=== PATIENT | female | born 1955 | race Caucasian/White ===

== ENCOUNTER 2022-03-20 13:21 | Inpatient (IN) | payer MEDICARE, OTHER ==
[~2022-03-20] VITALS: Ht 160 cm; Wt 74.8 kg
--- NOTE | 2022-03-20 13:25 | NUR ---
DOM 40 FROM ADULT DAY [facility]ARE C/O HEADACHE, PALPITATION AND CHEST PRESSURE FOR 1 MONTH. PLACED PATIENT COMFORTABLY IN BED. VITALS CHECKED. PATIENT CLAIMED THAT SHE HAS HEADACHE OF 6/10 IN PAIN SCALE IT STARTED 8AM TODAY.
[2022-03-20] MEDS ORDERED: OMEP20CA15 PO (13:26)
[2022-03-20] MEDS ORDERED: METF-440 PO (13:26)
[2022-03-20] MEDS ORDERED: ATOR10TA PO (13:26)
[2022-03-20] MEDS ORDERED: INSU100V3 SQ ×2 (13:26)
[2022-03-20] MEDS ORDERED: LEVO88TA5 PO (13:26)
[2022-03-20] MEDS ORDERED: NPH,100V SQ ×2 (13:26)
[2022-03-20] MEDS ORDERED: BENA40TA8 PO (13:26)
[2022-03-20] MEDS ORDERED: SERT50TA PO (13:26)
[2022-03-20] MEDS ORDERED: GLIM4TAB37 PO (13:26)
--- NOTE | 2022-03-20 13:30 | NUR ---
SEEN BY DR ROSS AT BEDSIDE.
[2022-03-20] MEDS ORDERED: LORAZEPAM 0.5 MG TABLET ONE (13:43)
--- NOTE | 2022-03-20 13:45 | NUR ---
EKG DONE AT BEDSIDE.
--- NOTE | 2022-03-20 13:51 | NUR ---
THERMOMETER PRODUCTION WORKER AT BEDSIDE.
--- NOTE | 2022-03-20 13:59 | NUR ---
CXR DONE AT BEDSIDE.
[2022-03-20] MEDS ORDERED: LORAZEPAM 0.5 MG TABLET PO ONE (14:00)
[2022-03-20 14:14] LABS: CALCIUM, SERUM 9.4 mg/dL (8.5-10.1); CARBON DIOXIDE 25 mmol/L (21-32); CHLORIDE 104 mmol/L (98-107); CREATININE 0.6 mg/dL (0.6-1.3); GLUCOSE 157 mg/dL (74-106); POTASSIUM 3.8 mmol/L (3.5-5.1); SODIUM SERUM 140 mmol/L (136-145); UREA NITROGEN, BLOOD 16 mg/dL (7-18)
[2022-03-20 14:18] LABS: BASOPHILS % (AUTO) 0.6 % (0.0-2.0); EOSINOPHILS % (AUTO) 1.4 % (0.0-6.0); HEMATOCRIT 41 % (33-45); HEMOGLOBIN 13.7 g/dL (11.5-14.8); LYMPHOCYTES # (AUTO) 2.4 K/uL (0.8-4.8); MEAN CORPUSCULAR HGB CONC 34 g/dl (31.0-36.0); MEAN CORPUSCULAR VOLUME 83 fL (82-100); MONOCYTES # (AUTO) 0.5 K/uL (0.1-1.30); MONOCYTES % (AUTO) 8.1 % (2.0-12.0); NEUTROPHILS # (AUTO) 3.3 K/uL (1.8-8.9); NEUTROPHILS % (AUTO) 51.9 % (43.0-81.0); PLATELET COUNT (AUTO) 237 K/uL (150-450); RED BLOOD CELL COUNT(AUTO) 4.86 MIL/uL (4.0-5.2); WHITE BLOOD COUNT (AUTO) 6.3 K/uL (4.3-11.0)
--- NOTE | 2022-03-20 14:35 | NUR ---
MOVE SHEET SUBMITTED AND CALLED FOR TELE BED.
--- NOTE | 2022-03-20 14:37 | NUR ---
COVID SWAB SENT TO LAB
--- NOTE | 2022-03-20 14:57 | NUR ---
IV CANNULA G20 INSERTED ON LEFT AC.
--- NOTE | 2022-03-20 15:39 | NUR ---
BED ASSIGNED 310-1
--- NOTE | 2022-03-20 16:15 | NUR ---
REPORT GIVEN TO SHELLY. DR BETANCUR AT BEDSIDE.
--- NOTE | 2022-03-20 16:18 | NUR ---
REPORT GIVEN TO TIEN BRAVO
[2022-03-20] MEDS ORDERED: ASPIRIN 81 MG TAB.CHEW ONE (16:25)
[2022-03-20] MEDS ORDERED: ASPIRIN 81 MG TAB.CHEW PO SCH (16:30)
--- NOTE | 2022-03-20 16:33 | NUR ---
TRANSFER PATIENT TO 310-A.
--- NOTE | 2022-03-20 16:38 | NUR ---
RN NOTES PATIENT ARRIVED TO UNIT AT ROOM 310-1 VIA GURNEY, ACCOMPANIED BY 2 ER NURSES. PATIENT ABLE TO AMBULATE W/ STEADY GAIT TO BED IN THE ROOM. A/O X4, VERBALLY RESPONSIVE AND ABLE TO MAKE NEEDS KNOWN; LATVIAN-SPEAKING BUT UNDERSTANDS GIBRALTARIAN.
--- NOTE | 2022-03-20 16:58 | NUR ---
RN NOTES PATIENT TAKEN TO RADIOLOGY FOR CT SCAN OF THE HEAD VIA WHEELCHAIR, ACCOMPANIED BY RAD TRANSPORTER.
[2022-03-20] MEDS ORDERED: ONDANSETRON HCL/PF 4 MG/2 ML VIAL IVP PRN (17:00)
[2022-03-20] MEDS ORDERED: ACETAMINOPHEN 325 MG TABLET PO PRN (17:00)
[2022-03-20] MEDS ORDERED: MORPHINE SULFATE INJ 2 MG/ML DISP.SYRIN IV PRN (17:00)
[2022-03-20] MEDS ORDERED: NITROGLYCERIN 0.4 MG/TAB BOTTLE SL PRN (17:00)
[2022-03-20] MEDS ORDERED: MAG HYDROX/AL HYDROX/SIMETH 30 ML UDC PO PRN (17:00)
[2022-03-20] MEDS ORDERED: DOCUSATE SODIUM 100 MG CAPSULE PO PRN (17:00)
[2022-03-20 18:00] VITALS: BP 160/78
[2022-03-20] MEDS: INSULIN REGULAR, HUMAN 100 UNIT/ML 3 ML VIAL SQ SCH (18:00)
[2022-03-20] MEDS ORDERED: INSULIN NPH, HUMAN ISOPHANE 100 UNIT/ML VIAL SQ SCH (18:00)
[2022-03-20] MEDS: METFORMIN 500 MG TABLET PO SCH (18:04)
--- NOTE | 2022-03-20 18:46 | NUR ---
RN NOTES CURRENTLY ATTACHED TO ELECTRIC POWER MACHINE OPERATOR, READING OF SR, NO CARDIAC DISTRESS NOTED. RETURNED FROM CT SCAN VIA WHEELCHAIR. NOT IN ACUTE DISTRESS.
--- NOTE | 2022-03-20 19:35 | NUR ---
FASHION CONSULTANT SALES OPENING NOTES PT RECEIVED RESTING IN BED COMFORTABLY; A/OX4, BREATHING EVEN AND UNLABORED; NO SOB NOTED; TOLERATING ROOM AIR WELL; TELE MONITOR READS SINUS RHYTHM; L AC #20 PRESENT, FLUSHING WELL; NO S/S OF REDNESS OR INFILTRATION NOTED; SAFETY PRECAUTIONS IMPLEMENTED; BED LOCKED IN LOW POSITION; SIDE RAILSX2; CALL LIGHT WITHIN REACH WILL CONT TO MONITOR
[2022-03-20 20:00] VITALS: BP 115/62
[2022-03-20] MEDS: SERTRALINE HCL 50 MG TABLET PO SCH (21:35)
[2022-03-21] VITALS: BP 132/63
[2022-03-21 04:00] VITALS: BP 133/67
--- NOTE | 2022-03-21 06:45 | NUR ---
WRINGER OPERATOR CLOSING NOTES PT RESTING IN BED COMFORTABLY; A/OX4, BREATHING EVEN AND UNLABORED; NO SOB NOTED; TOLERATING ROOM AIR WELL; TELE MONITOR READS SINUS RHYTHM 68 BPM; L AC #20 PRESENT, FLUSHING WELL; NO S/S OF REDNESS OR INFILTRATION NOTED; ALL NEEDS RENDERED; PT SLEPT WELL THROUGHOUT NIGHT; SAFETY PRECAUTIONS IMPLEMENTED; BED LOCKED IN LOW POSITION; SIDE RAILSX2; CALL LIGHT WITHIN REACH; WILL ENDORSE CONTINUITY OF CARE TO ONCOMING SHIFT
[2022-03-21 07:00] LABS: BASOPHILS % (AUTO) 0.6 % (0.0-2.0); EOSINOPHILS % (AUTO) 1.9 % (0.0-6.0); HEMATOCRIT 39 % (33-45); HEMOGLOBIN 13.2 g/dL (11.5-14.8); LYMPHOCYTES # (AUTO) 2.3 K/uL (0.8-4.8); LYMPHOCYTES % (AUTO) 40.1 % (20.0-44.0); MEAN CORPUSCULAR HGB CONC 34 g/dl (31.0-36.0); MEAN CORPUSCULAR VOLUME 83 fL (82-100); MONOCYTES # (AUTO) 0.4 K/uL (0.1-1.30); MONOCYTES % (AUTO) 7.4 % (2.0-12.0); NEUTROPHILS # (AUTO) 2.9 K/uL (1.8-8.9); PLATELET COUNT (AUTO) 227 K/uL (150-450); RED BLOOD CELL COUNT(AUTO) 4.72 MIL/uL (4.0-5.2); WHITE BLOOD COUNT (AUTO) 5.7 K/uL (4.3-11.0)
--- NOTE | 2022-03-21 07:45 | NUR ---
RN OPENING NOTE PATIENT IN BED RESTING, AWAKE, A/O X4. NO S/S OF PAIN NOTED AT THIS TIME. ON ROOM AIR, NO DISTRESS OR SHORTNESS OF BREATH NOTED. PATIENT ON TELE MONITOR WITH CURRENT READING OF SR AND HR OF 68, NO CARDIAC DISTRESS NOTED. IV ACCESS LAC #20G. FALL AND SAFETY MEASURES IN PLACE, BED ALARM ON, BED IN LOW AND LOCK POSITION, CALL LIGHT AND TABLE WITHIN EASY REACH, SIDE RAILS UP X2. WILL CONTINUE TO MONITOR.
[2022-03-21 07:46] LABS: ALBUMIN 3.5 g/dL (3.4-5.0); BILIRUBIN,TOTAL 0.4 mg/dL (0.2-1.0); CALCIUM, SERUM 9.2 mg/dL (8.5-10.1); CREATININE 0.7 mg/dL (0.6-1.3); MAGNESIUM 2.3 mg/dL (1.8-2.4); PHOSPHORUS 4.5 mg/dL (2.5-4.9); POTASSIUM 4.5 mmol/L (3.5-5.1)
[2022-03-21 07:56] LABS: THYROID STIMULATING HORMONE 3.406 uIU/mL (0.358-3.74)
[2022-03-21 08:00] VITALS: BP 142/60
[2022-03-21] MEDS: ASPIRIN 81 MG TAB.CHEW PO SCH (08:33)
[2022-03-21] MEDS: GLIMEPIRIDE 4 MG TABLET PO SCH (08:33)
[2022-03-21] MEDS: PANTOPRAZOLE 40 MG TABLET.DR PO SCH (08:34)
[2022-03-21] MEDS: ATORVASTATIN 10 MG TABLET PO SCH (08:34)
[2022-03-21] MEDS: LEVOTHYROXINE SODIUM 88 MCG TABLET PO SCH (08:34)
[2022-03-21] MEDS: CARVEDILOL 12.5 MG TABLET PO SCH ×2 (08:35→21:30)
[2022-03-21] MEDS: BENAZEPRIL HCL 20 MG TABLET PO SCH (08:35)
[2022-03-21] MEDS: ENOXAPARIN SODIUM 60 MG/0.6 ML DISP.SYRIN SQ SCH (08:43)
[2022-03-21] MEDS ORDERED: INSULIN NPH, HUMAN ISOPHANE 100 UNIT/ML VIAL SQ SCH (09:00)
[2022-03-21] MEDS ORDERED: INSULIN NPH/REG 70/30 MIX INJ 100 UNIT/ML VIAL SQ SCH ×2 (09:00→18:00)
[2022-03-21] MEDS: METFORMIN 500 MG TABLET PO SCH (10:12)
[2022-03-21] MEDS: INSULIN REGULAR, HUMAN 100 UNIT/ML 3 ML VIAL SQ SCH ×2 (10:15→17:34)
[2022-03-21] MEDS ORDERED: NITROGLYCERIN 0.4 MG/TAB BOTTLE SL PRN (10:30)
[2022-03-21] MEDS ORDERED: METOPROLOL TARTRATE 50 MG TABLET PO SCH (10:30)
[2022-03-21] MEDS ORDERED: METOPROLOL TARTRATE INJ 5 MG/5 ML AMPUL IVP PRN (10:30)
[2022-03-21 12:00] VITALS: BP 136/64
[2022-03-21] MEDS: BLOOD SUGAR DIAGNOSTIC 1 EACH STRIP IN SCH ×3 (12:25→23:58)
[2022-03-21] MEDS ORDERED: IV NS 0.9% 250 ML IV ONE ×2 (13:34→13:54)
[2022-03-21] MEDS ORDERED: IOHEXOL-350 100 ML VIAL IV ONE ×2 (13:34→13:54)
--- NOTE | 2022-03-21 13:35 | NUR ---
RN NOTE PATIENT WAS TAKEN TO DO A CT ANGIO HEART WITH 3D IMAGE.
--- NOTE | 2022-03-21 14:15 | NUR ---
RN NOTE PATIENT IS BACK IN HER ROOM FROM THE CT ANGIO HEART WITH 3D IMAGE, STABLE. PLEASE HOLD METFORMIN FOR TWO DAY. WILL CONTINUE TO MONITOR.
[2022-03-21 16:05] VITALS: BP 131/61
--- NOTE | 2022-03-21 17:35 | NUR ---
RN NOTE PATIENT 15 UNITS OF REGULAR INSULIN WAS HELD PATIENT GLUCOSE IS 70. PATIENT DID NOT HAVE MUCH APPETITE. WILL CONTINUE TO MONITOR.
[2022-03-21 18:58] LABS: BILIRUBIN,URINE NEGATIVE (NEGATIVE); COLOR,URINE YELLOW (YELLOW); LEUKOCYTE ESTERASE ,URINE NEGATIVE (NEGATIVE); NITRITE, URINE NEGATIVE (NEGATIVE); PROTEIN,URINE NEGATIVE (NEGATIVE); UGLUCOSE 250 MG/DL mg/dL (NEGATIVE); UROBILINOGEN,URINE 0.2 EU/dL (0.2)
--- NOTE | 2022-03-21 19:20 | NUR ---
RN CLOSING NOTE PATIENT IN BED RESTING, AWAKE, A/O X4. NO S/S OF PAIN NOTED AT THIS TIME. ON ROOM AIR, NO DISTRESS OR SHORTNESS OF BREATH NOTED. PATIENT ON TELE MONITOR WITH CURRENT READING OF SR AND HR OF 64, NO CARDIAC DISTRESS NOTED. IV ACCESS LAC #20G, INTACT, PATENT AND FLUSHING WELL. FALL AND SAFETY MEASURES IN PLACE, BED ALARM ON, BED IN LOW AND LOCK POSITION, CALL LIGHT AND TABLE WITHIN EASY REACH, SIDE RAILS UP X2. WILL ENDORSE TO ARTS EDUCATION TEACHER.
--- NOTE | 2022-03-21 19:45 | NUR ---
MS RN OPENING NOTES PT RECEIVED RESTING IN BED COMFORTABLY; A/OX4, BREATHING EVEN AND UNLABORED; NO SOB NOTED; TOLERATING ROOM AIR WELL; L AC #20 PRESENT, FLUSHING WELL; NO S/S OF REDNESS OR INFILTRATION NOTED; SAFETY PRECAUTIONS IMPLEMENTED; BED LOCKED IN LOW POSITION; SIDE RAILSX2; CALL LIGHT WITHIN REACH WILL CONT TO MONITOR
[2022-03-21 20:48] VITALS: BP 127/62
[2022-03-21] MEDS: SERTRALINE HCL 50 MG TABLET PO SCH (21:30)
--- NOTE | 2022-03-21 21:37 | NUR ---
MS RN NOTES ALL DUE MEDS GIVEN, PT AWARE OF MIDNIGHT ACCU CHECK. PT OK FOR ACCU CHECK AT MIDNIGHT; WILL CONT TO MONITOR
[2022-03-22] MEDS: BLOOD SUGAR DIAGNOSTIC 1 EACH STRIP IN SCH ×2 (06:07→12:40)
[2022-03-22 06:18] LABS: CALCIUM, SERUM 9.5 mg/dL (8.5-10.1); CREATININE 0.7 mg/dL (0.6-1.3); MAGNESIUM 2.2 mg/dL (1.8-2.4); PHOSPHORUS 4.3 mg/dL (2.5-4.9); POTASSIUM 4.3 mmol/L (3.5-5.1)
[2022-03-22 06:32] LABS: BASOPHILS % (AUTO) 0.7 % (0.0-2.0); EOSINOPHILS % (AUTO) 2.1 % (0.0-6.0); HEMATOCRIT 38 % (33-45); LYMPHOCYTES # (AUTO) 2.5 K/uL (0.8-4.8); LYMPHOCYTES % (AUTO) 39.6 % (20.0-44.0); MEAN CORPUSCULAR HGB CONC 34 g/dl (31.0-36.0); MEAN CORPUSCULAR VOLUME 84 fL (82-100); MONOCYTES # (AUTO) 0.5 K/uL (0.1-1.30); MONOCYTES % (AUTO) 8.2 % (2.0-12.0); NEUTROPHILS # (AUTO) 3.1 K/uL (1.8-8.9); NEUTROPHILS % (AUTO) 49.4 % (43.0-81.0); PLATELET COUNT (AUTO) 216 K/uL (150-450); RED BLOOD CELL COUNT(AUTO) 4.58 MIL/uL (4.0-5.2); WHITE BLOOD COUNT (AUTO) 6.2 K/uL (4.3-11.0)
[2022-03-22] MEDS: LEVOTHYROXINE SODIUM 88 MCG TABLET PO SCH (06:39)
[2022-03-22] MEDS: PANTOPRAZOLE 40 MG TABLET.DR PO SCH (06:39)
--- NOTE | 2022-03-22 06:44 | NUR ---
MS RN CLOSING NOTES PT AWAKE, RESTING IN BED COMFORTABLY; A/OX4, BREATHING EVEN AND UNLABORED; NO SOB NOTED; TOLERATING ROOM AIR WELL; L AC #20 PRESENT, FLUSHING WELL; NO S/S OF REDNESS OR INFILTRATION NOTED; ALL NEEDS RENDERED; SAFETY PRECAUTIONS IMPLEMENTED; BED LOCKED IN LOW POSITION; SIDE RAILSX2; CALL LIGHT WITHIN REACH; WILL ENDORSE CONTINUITY OF CARE TO ONCOMING SHIFT
--- NOTE | 2022-03-22 07:25 | NUR ---
MS RN OPENING NOTES RECEIVED PATIENT IN BED, A/OX4. ON RA WITH NO S/SX OF DISTRESS NOTED. DENIES PAIN AT THIS TIME. L AC G#20 INTACT AND PATENT. SAFETY PRECAUTIONS IN PLACE: BED LOCKED IN LOW POSITION, SIDE RAILS X2, CALL LIGHT WITHIN REACH. WILL CONTINUE PLAN OF CARE
[2022-03-22 08:00] VITALS: BP 153/83
[2022-03-22] MEDS: ASPIRIN 81 MG TAB.CHEW PO SCH (08:56)
[2022-03-22] MEDS: GLIMEPIRIDE 4 MG TABLET PO SCH (08:56)
[2022-03-22] MEDS: ATORVASTATIN 10 MG TABLET PO SCH (08:56)
[2022-03-22 08:57] VITALS: BP 153/83
[2022-03-22] MEDS: CARVEDILOL 12.5 MG TABLET PO SCH (08:57)
[2022-03-22] MEDS: BENAZEPRIL HCL 20 MG TABLET PO SCH (08:57)
[2022-03-22] MEDS: ENOXAPARIN SODIUM 60 MG/0.6 ML DISP.SYRIN SQ SCH (08:58)
[2022-03-22] MEDS: INSULIN REGULAR, HUMAN 100 UNIT/ML 3 ML VIAL SQ SCH (09:16)
[2022-03-22] MEDS ORDERED: CARV12.52 PO (12:23)
[2022-03-22] MEDS ORDERED: ASPI-1169 PO (12:23)
--- NOTE | 2022-03-22 13:00 | NUR ---
BUSINESS OFFICE COORDINATOR NOTES PATIENT MEDICALLY STABLE FOR DISCHARGE. VSS. DISCHARGE INSTRUCTIONS WERE PROVIDED AND EXIT CARE PACKET. PATIENT WAS ABLE TO VERBALIZE UNDERSTANDING. ALL BELONGINGS ACCOUNTED FOR AND DOCUMENTS SIGNED. IV ACCESS AND ID BAND REMOVED. PATIENT WAS PICKED UP BY DAUGHTER AND ACCOMPANIED TO FRONT LOBBY BY INTERFACE ANALYST.
[2022-03-23] MEDS ORDERED: METFORMIN 500 MG TABLET PO SCH (09:00)
[2022-03-23] MEDS ORDERED: ENOXAPARIN SODIUM 40 MG/0.4 ML DISP.SYRIN SQ SCH (09:00)
[2022-03-24] MEDS ORDERED: METFORMIN 500 MG TABLET PO SCH (09:00)
== END 2022-03-22 13:15 | disposition home or self-care (01) | DRG 206 ==
LOC: ER 13:23 → TELE 15:54 → MED 03-21 21:17
PROVIDERS: ADMIT Registered Nurse; ATTEND Student in an Organized Health Care Education/Training Program
DX: M94.0 Chondrocostal junction syndrome [Tietze] (principal); I10 Essential (primary) hypertension; I16.0 Hypertensive urgency; E03.9 Hypothyroidism, unspecified; K21.9 Gastro-esophageal reflux disease without esophagitis; E66.9 Obesity, unspecified; E78.5 Hyperlipidemia, unspecified; G89.29 Other chronic pain; I25.10 Atherosclerotic heart disease of native coronary artery without angina pectoris; Z79.4 Long term (current) use of insulin; R51.9 Headache, unspecified; E11.65 Type 2 diabetes mellitus with hyperglycemia; M79.10 Myalgia, unspecified site; Z79.84 Long term (current) use of oral hypoglycemic drugs; Z68.29 Body mass index [BMI] 29.0-29.9, adult; Z88.0 Allergy status to penicillin
CPT/HCPCS: 36415; 70450-TC; 71045-TC; 75574; 80048-TC; 80053-TC; 80061-TC; 82962-TC; 83735-TC; 84100-TC; 84443-TC; 84484-TC; 85025-TC; 87081-TC; 93307-TC; 97116-TC; 97530-TC; C9803; G0378; J1650; J1815; J7050; Q9967